=== PATIENT | male | born 1945 | race Caucasian/White ===

== ENCOUNTER 2022-12-25 16:28 | Inpatient (IN) | payer MEDICARE, MEDICAID ==
[2022-12-25 17:00] LABS: #Eosinphils 0.1 10x3/uL (0.0-0.5); #Monocytes 0.4 10x3/uL (0.0-1.1); #Neutrophils 3.8 10x3/uL (1.5-8.4); %Basophils 0.4 % (0.0-2.0); %Eosinophils 1.5 % (0.0-6.0); %Lymphocytes 21.2 % (18.0-47.0); %Monocytes 6.9 % (0.0-10.0); %Neutrophils 69.8 % (40.0-75.0); Hemoglobin 14.9 g/dL (13.5-17.5); Mean Corpuscular HGB CONC 33.3 g/dL (32.0-36.0); Mean Corpuscular Hemoglobin 30.5 pg (27.0-33.0); Mean Corpuscular Volume 91.4 fl (81.2-95.1); Mean Platelet Volume 11.4 fl (7.4-10.4); Platelet Count 164 10x3/uL (150-450); RBC Distribution Width 12.3 % (11.5-14.5); Red Blood Cell (RBC) Count 4.89 10x6/uL (4.32-5.72); White Blood Cell (WBC) Count 5.4 10x3/uL (3.5-10.5)
[2022-12-25 17:13] LABS: Bilirubin Neg (Negative); Blood, Urine 50 (Negative); Clarity Cloudy (Clear); Glucose, Urine (Dipstick) Normal (Negative); Ketone, Urine 5 mg/dL (Negative); Leukocyte 500 (Negative); Nitrite Negative (Negative); Protein, Urine (Dipstick) 30 mg/dl (Neg-Trace); Urobilinogen Normal mg/dL (Less than 2)
[2022-12-25 17:15] LABS: ALT (SGPT) 14 U/L (8-55); AST (SGOT) 28 U/L (5-34); Albumin 3.8 g/dL (3.4-4.8); Alkaline Phosphatase 69 U/L (40-110); Anion Gap 14 mmol/L (10-20); BUN (Urea Nitrogen) 16 mg/dL (8.4-25.7); Bilirubin, Total 0.9 mg/dL (0.2-1.2); CK (CPK) 404 U/L (30-200); Calc. Creatinine Clearance 0 mL/min (70-130); Calcium 8.9 mg/dL (7.8-10.44); Carbon Dioxide 33 mmol/L (23-31); Chloride 100 mmol/L (98-107); Estimated GFR 75; Globulin 2.5 g/dL (2.4-3.5); Glucose 91 mg/dL (83-110); Potassium 3.8 mmol/L (3.5-5.1); Protein, Total 6.3 g/dL (5.8-8.1); Sodium 143 mmol/L (136-145)
[2022-12-25 17:22] LABS: Bacteria/HPF 2+ HPF (None Seen); Squamous Epithelial 0-3 HPF (0-3); WBC/HPF Greater than 50 HPF (0-3)
[2022-12-25 17:23] LABS: White Blood Cell Cast 0-3 LPF (None Seen)
[2022-12-25 17:38] LABS: CKMB 2.6 ng/mL (0-6.6)
[2022-12-25] MEDS ORDERED: cefTRIAXone (ROCEPHIN) 1 GM VIAL ONE ×2 (17:45)
[2022-12-25] MEDS ORDERED: Ondansetron PF 4 MG/2 ML Vial IVP PRN (18:10)
[2022-12-25 20:24] LABS: Troponin I 0.121 ng/mL (< 0.028)
[2022-12-25] MEDS: Sodium Chloride 0.9% 1,000 ML IV SCH (21:00)
[2022-12-25 23:24] LABS: Troponin I 0.104 ng/mL (< 0.028)
[2022-12-26 05:17] LABS: Albumin 3.5 g/dL (3.4-4.8); Anion Gap 14 mmol/L (10-20); BUN (Urea Nitrogen) 15 mg/dL (8.4-25.7); Bilirubin, Total 0.7 mg/dL (0.2-1.2); Calc. Creatinine Clearance 79 mL/min (70-130); Calcium 8.6 mg/dL (7.8-10.44); Carbon Dioxide 28 mmol/L (23-31); Chloride 103 mmol/L (98-107); Estimated GFR 91; Glucose 71 mg/dL (83-110); Protein, Total 6.2 g/dL (5.8-8.1); Sodium 142 mmol/L (136-145)
[2022-12-26 05:18] LABS: ALT (SGPT) 12 U/L (8-55); AST (SGOT) 26 U/L (5-34); Alkaline Phosphatase 64 U/L (40-110); Globulin 2.7 g/dL (2.4-3.5)
[2022-12-26] MEDS ORDERED: Electrolyte Replacement Protocol 1 EACH FS SCH (07:45)
[2022-12-26] MEDS ORDERED: Potassium Chloride 20 MEQ TAB PO SCH (08:00)
[2022-12-26] MEDS: Cyanocobalamin (Vitamin B-12) 1,000 MCG TAB PO SCH (08:01)
[2022-12-26] MEDS: Folic Acid 1 MG TAB PO SCH (08:02)
[2022-12-26] MEDS: Lisinopril 10 MG TAB PO SCH (08:02)
[2022-12-26] MEDS: Clopidogrel Bisulfate 75 MG TAB PO SCH (08:02)
[2022-12-26] MEDS: clonazePAM 0.5 MG TAB PO SCH ×2 (08:02→23:03)
[2022-12-26] MEDS: Loratadine 10 MG TAB PO SCH (08:02)
[2022-12-26] MEDS: Hydrochlorothiazide 25 MG TAB PO SCH (10:07)
[2022-12-26] MEDS: traZODone HCl 50 MG TAB PO SCH ×2 (10:07→23:03)
[2022-12-26 12:00] LABS: Magnesium 1.9 mg/dL (1.6-2.6)
[2022-12-26] MEDS ORDERED: Magnesium 2 GM/50 ML(in water) 2 GM in Premix Bag 1 BAG IVPB SCH (13:00)
[2022-12-26] MEDS: Sodium Chloride 0.9% 1,000 ML IV SCH (13:25)
[2022-12-26] MEDS: cefTRIAXone\\ROCEPHIN 1 GM in Sodium Chloride 0.9% 100 ML IVPB SCH (17:09)
[2022-12-26] MEDS: hydrALAZINE 20 MG/ML VIAL SLOW IVP PRN (18:44)
[2022-12-26] MEDS: Prazosin HCl 1 MG CAP PO SCH (21:00)
[2022-12-26] MEDS: Donepezil HCl 5 MG TAB PO SCH (23:03)
[2022-12-26] MEDS: Atorvastatin Calcium 40 MG TAB PO SCH (23:04)
[2022-12-27 04:59] LABS: ALT (SGPT) 11 U/L (8-55); AST (SGOT) 25 U/L (5-34); Albumin 3.4 g/dL (3.4-4.8); Alkaline Phosphatase 63 U/L (40-110); Anion Gap 15 mmol/L (10-20); BUN (Urea Nitrogen) 17 mg/dL (8.4-25.7); Bilirubin, Total 0.6 mg/dL (0.2-1.2); Calc. Creatinine Clearance 63 mL/min (70-130); Calcium 8.2 mg/dL (7.8-10.44); Carbon Dioxide 24 mmol/L (23-31); Chloride 105 mmol/L (98-107); Estimated GFR 92; Globulin 2.6 g/dL (2.4-3.5); Glucose 70 mg/dL (83-110); Potassium 3.4 mmol/L (3.5-5.1); Sodium 141 mmol/L (136-145)
[2022-12-27] MEDS: Sodium Chloride 0.9% 1,000 ML IV SCH ×2 (05:10→09:47)
[2022-12-27 05:18] LABS: Magnesium 2.2 mg/dL (1.6-2.6)
[2022-12-27] MEDS ORDERED: Potassium Chloride 20 MEQ TAB PO SCH (08:00)
[2022-12-27] MEDS: Folic Acid 1 MG TAB PO SCH (08:49)
[2022-12-27] MEDS: Clopidogrel Bisulfate 75 MG TAB PO SCH (08:49)
[2022-12-27] MEDS: clonazePAM 0.5 MG TAB PO SCH ×2 (08:49→22:00)
[2022-12-27] MEDS: Lisinopril 10 MG TAB PO SCH (08:49)
[2022-12-27] MEDS: Cyanocobalamin (Vitamin B-12) 1,000 MCG TAB PO SCH (08:49)
[2022-12-27] MEDS: Loratadine 10 MG TAB PO SCH (08:50)
[2022-12-27] MEDS: traZODone HCl 50 MG TAB PO SCH ×2 (11:13→22:00)
[2022-12-27] MEDS: cefTRIAXone\\ROCEPHIN 1 GM in Sodium Chloride 0.9% 100 ML IVPB SCH (16:59)
[2022-12-27] MEDS: Atorvastatin Calcium 40 MG TAB PO SCH (21:55)
[2022-12-27] MEDS: Prazosin HCl 1 MG CAP PO SCH (21:55)
[2022-12-27] MEDS: Donepezil HCl 5 MG TAB PO SCH (21:55)
[2022-12-27 23:48] VITALS: BMI 20.9
[2022-12-28] MEDS: Sodium Chloride 0.9% 1,000 ML IV SCH ×2 (00:47→08:20)
[2022-12-28 05:04] LABS: ALT (SGPT) 11 U/L (8-55); AST (SGOT) 25 U/L (5-34); Albumin 3.1 g/dL (3.4-4.8); Alkaline Phosphatase 60 U/L (40-110); Anion Gap 12 mmol/L (10-20); BUN (Urea Nitrogen) 13 mg/dL (8.4-25.7); Bilirubin, Total 0.5 mg/dL (0.2-1.2); Calc. Creatinine Clearance 62 mL/min (70-130); Calcium 8.2 mg/dL (7.8-10.44); Carbon Dioxide 25 mmol/L (23-31); Chloride 108 mmol/L (98-107); Estimated GFR 92; Globulin 2.6 g/dL (2.4-3.5); Glucose 88 mg/dL (83-110); Potassium 3.6 mmol/L (3.5-5.1); Protein, Total 5.7 g/dL (5.8-8.1); Sodium 141 mmol/L (136-145)
[2022-12-28] MEDS: traZODone HCl 50 MG TAB PO SCH ×2 (08:18→21:58)
[2022-12-28] MEDS: Cyanocobalamin (Vitamin B-12) 1,000 MCG TAB PO SCH (08:19)
[2022-12-28] MEDS: Lisinopril 10 MG TAB PO SCH (08:19)
[2022-12-28] MEDS: Folic Acid 1 MG TAB PO SCH (08:19)
[2022-12-28] MEDS: Loratadine 10 MG TAB PO SCH (08:19)
[2022-12-28] MEDS: Clopidogrel Bisulfate 75 MG TAB PO SCH (08:19)
[2022-12-28] MEDS: Hydrochlorothiazide 25 MG TAB PO SCH (08:19)
[2022-12-28] MEDS: clonazePAM 0.5 MG TAB PO SCH ×2 (08:19→21:57)
[2022-12-28 10:38] LABS: Hemoglobin 13.8 g/dL (13.5-17.5); Mean Corpuscular HGB CONC 33.5 g/dL (32.0-36.0); Mean Corpuscular Hemoglobin 30.5 pg (27.0-33.0); Mean Corpuscular Volume 91.2 fl (81.2-95.1); Mean Platelet Volume 11.3 fl (7.4-10.4); Platelet Count 133 10x3/uL (150-450); RBC Distribution Width 12.4 % (11.5-14.5); Red Blood Cell (RBC) Count 4.52 10x6/uL (4.32-5.72); White Blood Cell (WBC) Count 4.9 10x3/uL (3.5-10.5)
[2022-12-28 10:39] LABS: #Eosinphils 0.2 10x3/uL (0.0-0.5); #Monocytes 0.4 10x3/uL (0.0-1.1); #Neutrophils 3.2 10x3/uL (1.5-8.4); %Basophils 0.2 % (0.0-2.0); %Eosinophils 3.1 % (0.0-6.0); %Lymphocytes 21.3 % (18.0-47.0); %Monocytes 8.6 % (0.0-10.0); %Neutrophils 66.4 % (40.0-75.0)
[2022-12-28] MEDS: Atorvastatin Calcium 40 MG TAB PO SCH (21:56)
[2022-12-28] MEDS: Prazosin HCl 1 MG CAP PO SCH (21:56)
[2022-12-28] MEDS: Donepezil HCl 5 MG TAB PO SCH (21:57)
[2022-12-29 05:25] LABS: Albumin 3.2 g/dL (3.4-4.8); Alkaline Phosphatase 61 U/L (40-110); Anion Gap 12 mmol/L (10-20); BUN (Urea Nitrogen) 9 mg/dL (8.4-25.7); Bilirubin, Total 0.5 mg/dL (0.2-1.2); Calc. Creatinine Clearance 63 mL/min (70-130); Calcium 8.3 mg/dL (7.8-10.44); Carbon Dioxide 27 mmol/L (23-31); Chloride 106 mmol/L (98-107); Estimated GFR 92; Globulin 2.6 g/dL (2.4-3.5); Glucose 88 mg/dL (83-110); Potassium 3.5 mmol/L (3.5-5.1); Protein, Total 5.8 g/dL (5.8-8.1); Sodium 141 mmol/L (136-145)
[2022-12-29 05:26] LABS: ALT (SGPT) 11 U/L (8-55); AST (SGOT) 25 U/L (5-34)
[2022-12-29] MEDS: Sodium Chloride 0.9% 1,000 ML IV SCH (06:19)
[2022-12-29] MEDS ORDERED: Potassium Chloride 20 MEQ TAB PO SCH (08:00)
[2022-12-29] MEDS: hydrALAZINE 20 MG/ML VIAL SLOW IVP PRN (08:40)
[2022-12-29] MEDS: Cyanocobalamin (Vitamin B-12) 1,000 MCG TAB PO SCH (08:41)
[2022-12-29] MEDS: Lisinopril 10 MG TAB PO SCH (08:41)
[2022-12-29] MEDS: Clopidogrel Bisulfate 75 MG TAB PO SCH (08:41)
[2022-12-29] MEDS: Folic Acid 1 MG TAB PO SCH (08:42)
[2022-12-29] MEDS: Loratadine 10 MG TAB PO SCH (08:54)
[2022-12-29] MEDS: clonazePAM 0.5 MG TAB PO SCH (08:54)
[2022-12-29] MEDS ORDERED: Amlodipine 5 MG TAB PO SCH (11:00)
[2022-12-29] MEDS ORDERED: traZODone HCl 50 MG TAB PO SCH (12:00)
[2022-12-29 18:33] VITALS: BP 152/80; TEMP 96.8
[2022-12-29] MEDS ORDERED: Lisinopril 10 MG TAB PO SCH (21:00)
[2022-12-30] MEDS ORDERED: Amlodipine 5 MG TAB PO SCH (09:00)
[2022-12-30] MEDS ORDERED: clonazePAM 0.5 MG TAB PO SCH (09:00)
== END 2022-12-29 16:45 | DRG 689 ==
LOC: CSHERS 16:28 → CSHERHOLD 18:19 → CSHTELE 20:53 → OBSVTOIN 12-27 09:06
PROVIDERS: ADMIT Internal Medicine; ATTEND Family Medicine
DX: N39.0 Urinary tract infection, site not specified (principal); G93.41 Metabolic encephalopathy; R47.01 Aphasia; B95.2 Enterococcus as the cause of diseases classified elsewhere; R77.8 Other specified abnormalities of plasma proteins; I10 Essential (primary) hypertension; F03.90 Unspecified dementia, unspecified severity, without behavioral disturbance, psychotic disturbance, mood disturbance, and anxiety; F43.10 Post-traumatic stress disorder, unspecified; F32.A Depression, unspecified; Z66 Do not resuscitate; Z79.899 Other long term (current) drug therapy; Z79.02 Long term (current) use of antithrombotics/antiplatelets; G47.30 Sleep apnea, unspecified; K21.9 Gastro-esophageal reflux disease without esophagitis
CPT/HCPCS: 36415; 36416; 51701; 70450; 71045; 80053; 81003; 81015; 82550; 82553; 83605; 83735; 83880; 84100; 84484; 85025; 87040; 87077; 87086; 87186; 93005; 94760; 94762; 96372; 96374; 96375; 96376; G0378; J0360; J0696; J1650; J1956; J3475; J3490; J7050